=== PATIENT | female | born 1990 | race Two or more races ===

== ENCOUNTER 2019-01-21 02:54 | Emergency (ER) | payer OTHER ==
[~2019-01-21] VITALS: Ht 162.6 cm; Wt 62.0 kg
[2019-01-21] MEDS ORDERED: FAMOTIDINE 20MG TABLET PO ONE (03:30)
[2019-01-21] MEDS ORDERED: DIPHENHYDRAMINE 25MG CAPSULE PO ONE (03:30)
[2019-01-21 05:54] VITALS: BP 107/60
== END 2019-01-21 05:59 | disposition home or self-care (01) ==
LOC: ER 02:54
DX: T78.40XA Allergy, unspecified, initial encounter (principal); L29.9 Pruritus, unspecified; L50.0 Allergic urticaria; J45.909 Unspecified asthma, uncomplicated; Z90.49 Acquired absence of other specified parts of digestive tract; X58.XXXA Exposure to other specified factors, initial encounter
CPT/HCPCS: 99283; Q0163